=== PATIENT | male | born 1995 | race Caucasian/White ===

== ENCOUNTER 2021-07-22 16:03 | Emergency (ER) | payer OTHER, MEDICAID ==
[~2021-07-22] VITALS: Ht 177.8 cm; Wt 86.2 kg
[2021-07-22 16:40] VITALS: BP 158/87
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
--- NOTE | 2021-07-22 17:15 | NUR ---
PTS EYEBROW LAC AND LIP WERE CLEANED WITH NORMAL SALINE.
--- NOTE | 2021-07-22 19:00 | NUR ---
CONTACTED LIZZY MEDINA TO CONFIRM REPORT WAS MADE, SPOKE WITH DORA RIVERA, CONFIRMED. NEW
--- NOTE | 2021-07-22 19:31 | NUR ---
Patient discharged with v/s stable. Written and verbal after care instructions ABOUT CONCUSSION given and explained. Patient verbalized understanding. Ambulatory with steady gait. All questions addressed prior to discharge. Advised to follow up with PMD.
== END 2021-07-22 19:31 | disposition home or self-care (01) ==
LOC: MED 16:03
DX: S01.111A Laceration without foreign body of right eyelid and periocular area, initial encounter (principal); S00.83XA Contusion of other part of head, initial encounter; S00.511A Abrasion of lip, initial encounter; M54.2 Cervicalgia; K13.0 Diseases of lips; Y04.2XXA Assault by strike against or bumped into by another person, initial encounter; Y93.89 Activity, other specified; Y92.89 Other specified places as the place of occurrence of the external cause; Y99.8 Other external cause status
CPT/HCPCS: 70450; 70486; 72125; 90471; 90715; 99285